=== PATIENT | female | born 1990 ===

== ENCOUNTER 2022-11-02 06:44 | Emergency (ER) | payer MEDICAID, SELFPAY ==
[2022-11-02 06:55] VITALS: BP 142/73; PULSE 80; RESP 18; TEMP 36.4; O2SAT 100
[2022-11-02 07:47] LABS: Appearance Urine Cloudy; Color Urine Yellow; Glucose Urine UA Negative (Negative); Leukocyte Esterase Urine Small (1+) (Negative); Nitrite Urine Negative (Negative); PH 5.5 (5.0-9.0); Specific Gravity - Urine 1.025 (1.005-1.025); UMIC TRIGGER UACC YES; Urine Blood Trace (Negative); Urine Ketones Trace mg/dL (Negative); Urine Protein Trace mg/dL (Neg-Trace)
[2022-11-02 07:48] LABS: UPreg QC Valid YES; Urine Pregnancy NEGATIVE (NEGATIVE)
[2022-11-02 07:53] LABS: Bacteria Urine 1+ (None Seen); Hyaline Casts Urine 0-2 /LPF (0-2); UACC Culture Trigger YES; WBC Urine 21-50 /HPF (0-5)
[2022-11-02 07:58] LABS: Basophils Absolute Auto 0.1 X10*3/uL (0.0-0.2); Basophils Percent Auto 0.6 % (0-2); Eosinophils Absolute Auto 0.1 X10*3/uL (0.0-0.4); Eosinophils Percent Auto 1.5 % (0-4); Hematocrit 40.9 % (37.0-47.0); Hemoglobin 13.5 g/dl (12.0-16.0); Imm Gran Abs Auto 0.04 X10*3/uL (0.00-0.03); Imm Gran Pct Auto 0.4 % (0.0-0.4); Lymphocytes Absolute Auto 1.8 X10*3/uL (1.2-4.9); MANUAL DIFF FLAG NO; Mean Corpuscular Hemoglobin 29.7 pg (27.0-33.0); Mean Corpuscular Volume 90.1 fL (80.0-98.0); Mean Platelet Volume 9.8 fL (9.4-12.3); Monocytes Absolute Auto 0.5 X10*3/uL (0.1-1.2); Monocytes Percent Auto 4.9 % (2-11); Neutrophils Absolute Auto 7.1 x10*3/uL (2.0-8.3); Neutrophils Percent Auto 73.6 % (45-73); Platelet Count 358 X10*3/uL (160-400); Red Blood Count 4.54 X10*6/uL (4.20-5.50); Red Cell Distribution Width 12.7 % (11.0-16.0); White Blood Count 9.6 X10*3/uL (4.8-10.8)
--- NOTE | 2022-11-02 09:08 | ED.GENADULT ---
HPI - General Adult General Chief complaint: General Medical Stated complaint: Dizziness, Nausea, Multiple complaints Time Seen by Provider: 11/02/22 09:08 Source: patient and family Mode of arrival: ambulatory Limitations: no limitations History of Present Illness HPI narrative: Patient is a 32-year-old female with history of BPPV presenting to emergency department with one week of intermittent dizziness, fatigue with exertion, and nausea. She reports history of vertigo several years prior, had an MRI and it was determined to be BPPV. She denies abdominal pain, vomiting, diarrhea, or constipation. Denies back or flank pain. Denies fever/chills. Denies chest pain or dyspnea. Reports LMP was 09/21, negative home test. Denies blurred vision, double vision or other vision changes. Denies headaches. Denies syncope or pre-syncope. Denies any decreased hearing. MD complaint: dizziness Onset (ago): week(s) Radiation: non-radiation Treatments prior to arrival: none Related Data Previous Rx's Medication Instructions Recorded nitrofurantoin 100 mg PO BID #10 caps 11/02/22 monohydrate/macrocrystals 100 mg capsule (Macrobid) Allergies Allergy/AdvReac Type Severity Reaction Status Date / Time No Known Allergies Allergy Verified 11/02/22 06:55 Review of Systems Review of Systems: As per HPI. Yes all other systems are reviewed and are negative Constitutional: Constitutional: Reports as per HPI [facility] Social History Social History Advance Directives: No Advance Directives Information Provided: Yes Physical Exam ED Vital Signs: Vital Signs - 24 hr 11/02/22 06:55 11/02/22 09:47 Temperature 97.5 F 98.9 F Pulse Rate 80 79 Respiratory Rate 18 16 Blood Pressure 142/73 H 123/62 Pulse Oximetry 100 100 Oxygen Delivery Method Room Air BMI result Body Mass Index 30.0 Vital signs have been reviewed and appear to be correct. Blood pressure mildly elevated. Heart rate normal. Respiratory rate normal. Temperature normal. Oxygen saturation normal. Const General: cooperative, healthy appearing and no acute distress Orientation/consciousness: oriented to person, oriented to place, oriented to time and patient oriented x3 Limitations: no limitations HENMT Head: Yes normocephalic and Yes atraumatic Ears: external ears normal General nose exam: Normal external nose present Face and sinus: Yes face symmetric Mouth: oropharynx normal and moist mucous membranes Throat: Yes uvula midline Eyes Pupils: Equal, round and reactive pupils present Neck Neck: Yes normal visual inspection, Yes no meningeal signs and Yes supple Resp Effort & Inspection: normal respiratory effort and able to speak in complete sentences Auscultation: clear to auscultation bilaterally Cardio Rate: regular rate Rhythm: regular rhythm Heart sounds: S1 normal heart sound present and S2 normal heart sound present GI Palpation (GI): Soft to palpation and nontender Auscultation: normoactive bowel sounds General: Yes no CVA tenderness Back/Spine/Pelvis Back: no CVA tenderness Skin General skin exam: elasticity normal and turgor normal Neuro General: oriented to person, oriented to place, oriented to time, patient oriented x3, gait normal, tone normal, moves all extremities, Normal light touch and pain sensation, no meningeal signs, no focal motor deficits, CN's II-XI intact bilaterally and [place] Hallpike (positive on left) Cranial nerves: Yes Equal, round and reactive pupils present Cognition (Neuro): normal cognition Motor exam (neuro): 5/5 motor strength present throughout, Pronator motor function not present, no tremor noted, Normal motor muscle tone present throughout and Motor abnormalities not present Sensory Exam: Normal double simultaneous stimulation for sensation Extrem General: Yes full ROM, Yes no pedal edema and Yes no calf tenderness Psych Mental Status: mental status grossly normal Affect: normal affect Thought process: Normal thought process present Medical Decision Making Medical Decision Making [facility] Narrative: Patient is a 32-year-old female with history of BPPV presenting to emergency department with one week of intermittent dizziness, fatigue with exertion, and nausea. On exam patient is awake, A+Ox3, VS WNL, normal neurological exam without focal deficits, positive Har[place]-Hallpike on left and reported history of BPPV, leukocytes and WBCs on UA. Likely UTI with BPPV, also assessing for electrolyte abnormalities. Beta HCG negative. Unlikely ICH/posterior stroke, MS, acoustic neuroma, carotid artery dissection. 09:59 LFTs, magnesium, and other electrolytes WNL, no leukocytosis. Prescribed Macrobid for UTI. Performed Tatiana maneuver and provided patient with instructions on how to perform at home for left sided symptoms. Instructed patient to follow up with PCP this week. Return precautions discussed at bedside. Differential Diagnosis Differential Diagnoses: The differential diagnosis associated with the presentation includes As above. Lab Data [facility] Lab Attestation statement: I reviewed the patient's lab results. 11/02/22 07:40 11/02/22 07:40 Labs: Lab Results 11/02/22 11/02/22 11/02/22 Range/Units 07:40 07:40 07:40 WBC 9.6 (4.8-10.8) X10*3/uL RBC 4.54 (4.20-5.50) X10*6/uL Hgb 13.5 (12.0-16.0) g/dl Hct 40.9 (37.0-47.0) % MCV 90.1 (80.0-98.0) fL MCH 29.7 (27.0-33.0) pg MCHC 33.0 (31.0-35.0) g/dl RDW 12.7 (11.0-16.0) % Plt Count 358 (160-400) X10*3/uL MPV 9.8 (9.4-12.3) fL Immature Gran % (Auto) 0.4 (0.0-0.4) % Neut % (Auto) 73.6 H (45-73) % Lymph % (Auto) 19.0 L (20-40) % [place] % (Auto) 4.9 (2-11) % Eos % (Auto) 1.5 (0-4) % Baso % (Auto) 0.6 (0-2) % Lymph # (Auto) 1.8 (1.2-4.9) X10*3/uL [place] # (Auto) 0.5 (0.1-1.2) X10*3/uL Eos # (Auto) 0.1 (0.0-0.4) X10*3/uL Baso # (Auto) 0.1 (0.0-0.2) X10*3/uL Abs Immat Gran (auto) 0.04 H (0.00-0.03) X10*3/uL Absolute Neuts (auto) 7.1 (2.0-8.3) x10*3/uL Absolute Nucleated RBC 0.000 (0.0-0.012) X10*3/uL Nucleated RBC % (auto) 0.0 (0.0-0.2) /100WBC Sodium 138 (135-145) mmol/L Potassium 4.5 (3.3-5.1) mmol/L Chloride 110 H (96-108) mmol/L Carbon Dioxide 20 L (22-29) mmol/L Anion Gap 13 (12-20) BUN 12 (9-16) mg/dL Creatinine 0.85 (0.5-1.4) mg/dL Estim Creat Clear Calc 85.3 Estimated GFR > 60 Random Glucose 87 (60-115) mg/dL Calcium 8.9 (8.4-10.2) mg/dL Magnesium 2.2 (1.6-2.6) mg/dL Total Bilirubin 0.4 (0.0-1.0) mg/dL Direct Bilirubin 0.1 (0.0-0.5) mg/dL AST 21 (5-31) U/L ALT 24 (0-31) U/L Alkaline Phosphatase 76 (39-117) U/L Total Protein 7.1 (6.5-8.0) g/dL Albumin 3.8 (3.5-5.0) g/dL Lipase 23 (8-78) U/L Beta HCG, Quant < 2 mIU/mL Urine Color Urine Appearance Urine pH (5.0-9.0) Ur Specific [place] (1.005-1.025) Urine Protein (Neg-Trace) mg/dL Urine Glucose (UA) (Negative) mg/dL Urine Ketones (Negative) mg/dL Urine Blood (Negative) Urine Nitrite (Negative) Ur Leukocyte Esterase (Negative) Urine RBC (0-2) /HPF Urine WBC (0-5) /HPF Ur Squamous Epith Cells (0-2) /HPF Urine Bacteria (None Seen) Hyaline Casts (0-2) /LPF Urine Test NEGATIVE (NEGATIVE) 11/02/22 Range/Units 07:40 WBC (4.8-10.8) X10*3/uL RBC (4.20-5.50) X10*6/uL Hgb (12.0-16.0) g/dl Hct (37.0-47.0) % MCV (80.0-98.0) fL MCH (27.0-33.0) pg MCHC (31.0-35.0) g/dl RDW (11.0-16.0) % Plt Count (160-400) X10*3/uL MPV (9.4-12.3) fL Immature Gran % (Auto) (0.0-0.4) % Neut % (Auto) (45-73) % Lymph % (Auto) (20-40) % [place] % (Auto) (2-11) % Eos % (Auto) (0-4) % Baso % (Auto) (0-2) % Lymph # (Auto) (1.2-4.9) X10*3/uL [place] # (Auto) (0.1-1.2) X10*3/uL Eos # (Auto) (0.0-0.4) X10*3/uL Baso # (Auto) (0.0-0.2) X10*3/uL Abs Immat Gran (auto) (0.00-0.03) X10*3/uL Absolute Neuts (auto) (2.0-8.3) x10*3/uL Absolute Nucleated RBC (0.0-0.012) X10*3/uL Nucleated RBC % (auto) (0.0-0.2) /100WBC Sodium (135-145) mmol/L Potassium (3.3-5.1) mmol/L Chloride (96-108) mmol/L Carbon Dioxide (22-29) mmol/L Anion Gap (12-20) BUN (9-16) mg/dL Creatinine (0.5-1.4) mg/dL Estim Creat Clear Calc Estimated GFR Random Glucose (60-115) mg/dL Calcium (8.4-10.2) mg/dL Magnesium (1.6-2.6) mg/dL Total Bilirubin (0.0-1.0) mg/dL Direct Bilirubin (0.0-0.5) mg/dL AST (5-31) U/L ALT (0-31) U/L Alkaline Phosphatase (39-117) U/L Total Protein (6.5-8.0) g/dL Albumin (3.5-5.0) g/dL Lipase (8-78) U/L Beta HCG, Quant mIU/mL Urine Color Yellow Urine Appearance Cloudy Urine pH 5.5 (5.0-9.0) Ur Specific [place] 1.025 (1.005-1.025) Urine Protein Trace (Neg-Trace) mg/dL Urine Glucose (UA) Negative (Negative) mg/dL Urine Ketones Trace (Negative) mg/dL Urine Blood Trace H (Negative) Urine Nitrite Negative (Negative) Ur Leukocyte Esterase Small (1+) H (Negative) Urine RBC 3-5 H (0-2) /HPF Urine WBC 21-50 H (0-5) /HPF Ur Squamous Epith Cells 6-10 (0-2) /HPF Urine Bacteria 1+ (None Seen) Hyaline Casts 0-2 (0-2) /LPF Urine Test (NEGATIVE) Independent Historian Clinical information obtained from an independent historian. History obtained from or confirmed by: Spouse External Record Review External record reviewed: Inpatient record, Office record and Outpatient record Prescription Management I considered prescription management with: Antibiotic Discharge Plan Discharge Clinical Impression: Urinary tract infection Benign paroxysmal positional vertigo Qualifiers: Laterality: left Qualified Code(s): H81.12 - Benign paroxysmal vertigo, left ear Patient Disposition: Home, Self-Care Instructions: Urinary Tract Infection in Women (DC), Benign Paroxysmal Positional Vertigo (ED) Additional Instructions: You can continue to perform the Tatiana maneuvers at home to decreased your dizziness. You are being prescribed Macrobid which is an antibiotic for your urinary tract infection. Please complete the full course of antibiotics as prescribed. Follow-up with your primary care provider this week. Return to the emergency department if you experience worsening dizziness, fainting, chest pain, shortness of breath, fever 100.4? F or greater come back or flank pain, abdominal pain or any other concerning symptoms. Prescriptions: New nitrofurantoin monohyd/m-cryst [Macrobid] 100 mg capsule 100 mg PO BID Qty: 10 0RF Rx Instructions: must administer with a meal/food
[2022-11-02 09:12] LABS: Anion Gap 13 (12-20); Blood Urea Nitrogen 12 mg/dL (9-16); Calcium 8.9 mg/dL (8.4-10.2); Carbon Dioxide 20 mmol/L (22-29); Chloride 110 mmol/L (96-108); Creatinine Clr Calc Pharmacy 85.3; Estimated Glomerular Filt Rate > 60; Glucose Random 87 mg/dL (60-115); Potassium 4.5 mmol/L (3.3-5.1); Sodium 138 mmol/L (135-145)
[2022-11-02 09:18] LABS: HCG Quantitative < 2 mIU/mL
[2022-11-02 09:33] LABS: Alanine Aminotransferase 24 U/L (0-31); Albumin Level 3.8 g/dL (3.5-5.0); Alkaline Phosphatase 76 U/L (39-117); Aspartate Amino Transferase 21 U/L (5-31); Bilirubin Direct 0.1 mg/dL (0.0-0.5); Bilirubin Total 0.4 mg/dL (0.0-1.0); Lipase 23 U/L (8-78); Magnesium 2.2 mg/dL (1.6-2.6); Total Protein 7.1 g/dL (6.5-8.0)
[2022-11-02 09:47] VITALS: BP 123/62; PULSE 79; RESP 16; TEMP 37.2; O2SAT 100
== END 2022-11-02 11:07 | disposition home or self-care (01) ==
PROVIDERS: Registered Nurse Emergency; Emergency Provider Internal Medicine
DX: N39.0 Urinary tract infection, site not specified (principal); H81.12 Benign paroxysmal vertigo, left ear
CPT/HCPCS: 36415; 80048; 80076; 81001; 81025; 83690; 83735; 84702; 85025; 87086; 99283; 99284

== ENCOUNTER 2022-11-04 14:57 | Outpatient (REF) | payer MEDICAID, SELFPAY ==
[2022-11-04 16:01] LABS: Troponin-I High Sensitivity < 2.7 ng/L (<3.5-17.0)
[2022-11-04 16:13] LABS: TSH reflex Free T4 2.23 uIU/mL (0.32-4.0); Vitamin D 25-OH Total 45.2 ng/mL (>30)
== END 2022-11-04 14:58 | disposition home or self-care (01) ==
LOC: HO.LAB 14:57
PROVIDERS: Visit Provider Emergency Medicine
DX: R07.9 Chest pain, unspecified (principal); R00.2 Palpitations; H81.10 Benign paroxysmal vertigo, unspecified ear
CPT/HCPCS: 36415; 82306; 84443; 84484

== ENCOUNTER → 2023-01-19 14:02 | Outpatient (REF) | payer MEDICAID, SELFPAY ==
--- NOTE | 2023-01-19 14:05 | CA_ITS ---
Transthoracic Echocardiogram Patient (Last, First, Middle): Taniya Mejia, Gender: Female Date of : 1990 Age: 32 Procedure Date: 01/19/2023 Procedure Type: Transthoracic Echocardiogram Location: OP Height: 154.94 cm Weight: 72.58 kg BSA: 1.72 m2 Heart Rate: 67 bpm BP: 120 / 80 mmHg [employer]visor [employer]: EV[employer] Referring MD: Marcos Valencia MD Symptoms: R00.2 PALPITATIONS RO7.9 CHEST PAIN Study Quality: Fair ECG Rhythm: Sinus Conclusions: - The left ventricular systolic function is normal. The calculated ejection fraction is 63% by biplane method. - No obvious valvular pathology seen on this study. Findings Left Ventricle Normal left ventricular cavity size. There is normal left ventricular wall thickness. The left ventricular systolic function is normal. The calculated ejection fraction is 63% by biplane method. There is no evidence of regional wall motion abnormalities. Diastolic function is normal for age. LV peak GLS -18.8%. Right Ventricle Normal right ventricular cavity size and systolic function. Atria Both atria are normal in size. Aortic Valve There is a normal trileaflet aortic valve. There is no aortic valve stenosis. There is no aortic valve regurgitation. Mitral Valve The mitral valve appears normal. There is no mitral valve regurgitation. There is no mitral valve stenosis. Pulmonic Valve The pulmonic valve is likely normal. Tricuspid Valve Normal tricuspid valve structure. There is trace tricuspid valve regurgitation. There is no evidence of pulmonary hypertension. Great Vessels The asc aorta is normal in size. Venous The inferior vena cava is normal in size and collapses greater than 50% with inspiration. Pericardium/Pleural There is no evidence of pericardial effusion. Prior Study Comparison No prior study available for comparison. Recommendations, Care & Conclusions No obvious valvular pathology seen on this study. Measurements 2D Linear Measurements IVSd: 0.77 0.6-0.9/0.6-1.0 cm LVIDd: 4.29 3.9-5.3/4.2-5.9 cm LVIDd Index: 2.49 2.4-3.2/2.2-3.1 cm/m2 LVIDs: 2.76 2.0-3.6 cm LVPWd: 0.84 0.7-1.1 cm Ao Root: 2.50 2.1-3.5 cm LA Diam: 3.00 2.7-3.8/3.0-4.0 cm LAIDs Index: 1.74 1.5-2.3 cm/m2 LV Mass: 131.37 67-162/88-224 g LV Mass Index: 76.38 43-95/49-115 g/m2 LVOT Diam: 1.80 3.0+(-)1.3 cm 2D Systolic Function EF 4C: 66.20 >55% EF 2C: 58.30 >55% EF BiP: 63.10 >55% Mitral Valve MV Pk E: 1.02 MV PK A: 0.68 MV Decel Time: 212.00 E/A: 1.50 E'Lateral: 14.90 E'Medial: 9.90 E/E' Med: 10.30 E/E' Lat: 6.80 PHT: 62.00 MVA PHT: 3.55 Decel Bullitt: 4.83 Aortic Valve AoV Pk Dima: 1.37 AoV Mn Dima: 0.96 AoV VTI: 0.30 AoV Pk Grad: 8.00 Aov Mn Grad: 4.00 DARI Cont.VTI: 1.97 LVOT LVOT Pk Dima: 1.01 LVOT Mn Dima: 0.74 LVOT VTI: 0.23 LVOT Pk Grad: 4.00 LVOT Mn Grad: 2.00 LVOT Diam: 1.80 LVOT Area: 2.54 Diastolic Function MV Pk E: 1.02 MV Pk A: 0.68 E/A: 1.50 E'Medial: 9.90 E/E' Med: 10.30 E' Laterial: 14.90 E/E' Lat: 6.80 Right Ventricle TAPSE (mm): 22.20 TVS' Dima: 12.30 Tricuspid Valve TR Pk Dima: 2.13 TR Pk Grad: 18.00 Great Vessels Aorta Ao Root-2D: 2.50 2.0-3.7 cm Sinus of Valsalva: 2.50 2.0-3.5 cm Ao Asc: 2.40 2.1-3.4 cm Pulmonary Valve PV Pk Dima: 1.51 Peak PV Grad: 9.00 Updated in Other Vendor System with Status of Final Mukund Mccarthy MD electronically signed on 01/21/2023 9:50:26 AM with status of Final
== END ==
LOC: HO.CARD 14:02
PROVIDERS: Visit Provider Internal Medicine Cardiovascular Disease
DX: R07.9 Chest pain, unspecified (principal); R00.2 Palpitations
CPT/HCPCS: 93306; 93356

== ENCOUNTER → 2023-01-19 14:05 | Outpatient (BNV) | payer MEDICAID, SELFPAY | PROVIDERS: Visit Provider Internal Medicine | DX: R00.2 Palpitations (principal); R07.9 Chest pain, unspecified | CPT/HCPCS: 93306 ==

== ENCOUNTER → 2023-02-14 11:00 | Outpatient (REF) | payer MEDICAID, SELFPAY ==
--- NOTE | 2023-02-14 11:02 | CA_ITS ---
Acquisition Time: 2023-02-14 11:10:03 Total Exercise Time: 00:07:12 Test Indications: Dyspnea Medications: NONE Protocol: MATT Max HR: 160 BPM 85% of Pred: 187 BPM Max BP: 134/070 mmHG Max Work Load: 8.8 METS Exercise stress test exercise 7 min 12 sec of Matt protocol briefly achieivng 83%, with mild SOB, 3/10 right sided chest pressure, without arrhythmias, with normotensive response to exercise, without EKG changes. Echo images obtained at rest and immediately post peak exercise. Definity contrast used. Test reviewed with Dr. Sheth. Referred By: Marcos Valencia Overread By: AV CHAHAL
== END ==
LOC: HO.CARD 11:00
PROVIDERS: Visit Provider Internal Medicine Cardiovascular Disease
DX: R07.9 Chest pain, unspecified (principal); R00.2 Palpitations
CPT/HCPCS: 93350; Q9957

== ENCOUNTER → 2023-02-14 11:02 | Outpatient (BNV) | payer MEDICAID, SELFPAY | PROVIDERS: Visit Provider Internal Medicine | DX: R07.89 Other chest pain (principal); R06.02 Shortness of breath | CPT/HCPCS: 93016; 93018; 93350; 93352 ==

== ENCOUNTER 2023-04-14 07:51 | Emergency (ER) | payer OTHER, MEDICAID, SELFPAY ==
--- NOTE | ~2023-04-14 | CT_ITS ---
EXAMINATION: CT HEAD WITHOUT CONTRAST CT CERVICAL SPINE WITHOUT CONTRAST CLINICAL INFORMATION: 32-year-old female with head and neck pain COMPARISON: None TECHNIQUE: Contiguous axial imaging was performed from the skull base to vertex without intravenous administration of contrast. Contiguous axial imaging was performed from the upper chest through the skull base without intravenous administration of contrast. Coronal and sagittal reformats were obtained at the acquisition workstation. This CT examination was performed using dose optimization techniques as appropriate, variously including the following: *Automated exposure control. *Adjustment of mA and/or kV according to patient size (this includes techniques or standardized protocols for targeted exams where dose is matched to indication/reason for exam; i.e. extremities or head). *Use of iterative reconstruction technique. DLP: 1419 mGy-cm FINDINGS: Head: There is no evidence of acute intracranial hemorrhage or edematous territorial infarction. Kelley-white matter differentiation is preserved. There is no abnormal attenuation within the brain parenchyma. The ventricles are normal in morphology and size. No evidence for obstructive hydrocephalus. No abnormal mass effect or midline shift. No extra-axial fluid collections. No acute soft tissue or osseous abnormalities. The mastoid air cells and visualized paranasal sinuses are clear. Cervical Spine: The atlantooccipital and atlantoaxial articulations remain well aligned. Straightening of the normal cervical lordosis. Otherwise, there is anatomic alignment of the vertebral bodies and posterior elements. No evidence of acute fracture or subluxation. The vertebral body heights and disc spaces are maintained. There is no prevertebral soft tissue swelling. The thyroid gland and remaining cervical soft tissues are within normal limits. The lung apices demonstrate no abnormalities. CT/CT cervical spine wo IV con IMPRESSION: No acute intracranial pathology.
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
[2023-04-14 08:08] VITALS: BP 115/61; PULSE 87; RESP 16; TEMP 36.6; O2SAT 99; BMI 30.2
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
--- NOTE | 2023-04-14 09:56 | PC.NURSE ---
20gIV placed in right AC w/o difficultly;ty - labs drawn and sent to lab. pt awaiting CT scan.
[2023-04-14 10:10] LABS: MANUAL DIFF FLAG NO
[2023-04-14 10:12] LABS: Basophils Absolute Auto 0.1 X10*3/uL (0.0-0.2); Basophils Percent Auto 0.6 % (0-2); Eosinophils Absolute Auto 0.2 X10*3/uL (0.0-0.4); Eosinophils Percent Auto 1.5 % (0-4); Hematocrit 41.5 % (37.0-47.0); Hemoglobin 14.1 g/dl (12.0-16.0); Imm Gran Abs Auto 0.06 X10*3/uL (0.00-0.03); Imm Gran Pct Auto 0.5 % (0.0-0.4); Lymphocytes Absolute Auto 2.3 X10*3/uL (1.2-4.9); Lymphocytes Percent Auto 20.2 % (20-40); Mean Corpuscular Hemoglobin 29.9 pg (27.0-33.0); Mean Corpuscular Volume 87.9 fL (80.0-98.0); Mean Platelet Volume 9.7 fL (9.4-12.3); Monocytes Absolute Auto 0.6 X10*3/uL (0.1-1.2); Monocytes Percent Auto 4.8 % (2-11); Neutrophils Absolute Auto 8.4 x10*3/uL (2.0-8.3); Neutrophils Percent Auto 72.4 % (45-73); Platelet Count 340 X10*3/uL (160-400); Red Blood Count 4.72 X10*6/uL (4.20-5.50); Red Cell Distribution Width 12.1 % (11.0-16.0); White Blood Count 11.6 X10*3/uL (4.8-10.8)
[2023-04-14 10:17] LABS: INTERNATIONAL NORM RATIO 0.9 (0.9-1.1); Prothrombin Time 11.1 SEC (11.1-13.3)
[2023-04-14 10:57] LABS: HCG Quantitative < 2 mIU/mL
[2023-04-14 11:34] LABS: Alanine Aminotransferase 25 U/L (0-31); Albumin Level 3.8 g/dL (3.5-5.0); Alkaline Phosphatase 136 U/L (39-117); Anion Gap 11 (12-20); Aspartate Amino Transferase 24 U/L (5-31); Bilirubin Direct 0.2 mg/dL (0.0-0.5); Bilirubin Total 0.4 mg/dL (0.0-1.0); Blood Urea Nitrogen 12 mg/dL (9-16); Carbon Dioxide 19 mmol/L (22-29); Chloride 113 mmol/L (96-108); Creatinine Clr Calc Pharmacy 110.4; Estimated Glomerular Filt Rate > 60; Glucose Random 75 mg/dL (60-115); Lipase 17 U/L (8-78); Potassium 3.6 mmol/L (3.3-5.1); Sodium 139 mmol/L (135-145); Total Protein 7.1 g/dL (6.5-8.0)
--- NOTE | 2023-04-14 11:50 | PC.NURSE ---
pt to CT at this time.
[2023-04-14] MEDS: iohexoL 350 MG/ML 100 ML INFUS..BTL 85 ML IV (12:04)
[2023-04-14 12:18] VITALS: BP 112/60; PULSE 79; RESP 16; TEMP 36.7; O2SAT 99
[2023-04-14 15:58] LABS: Appearance Urine Clear; Color Urine Yellow; Glucose Urine UA Negative (Negative); Leukocyte Esterase Urine Negative (Negative); Nitrite Urine Negative (Negative); Specific Gravity - Urine >= 1.030 (1.005-1.025); UMIC TRIGGER UACC YES; Urine Blood Trace (Negative); Urine Ketones Trace mg/dL (Negative); Urine Protein Negative (Neg-Trace)
[2023-04-14 16:16] LABS: Bacteria Urine 4+ (None Seen); Hyaline Casts Urine 0-2 /LPF (0-2); UACC Culture Trigger YES
== END 2023-04-14 16:00 | disposition home or self-care (01) ==
PROVIDERS: Physician Assistant; Emergency Provider Emergency Medicine
DX: S13.4XXA Sprain of ligaments of cervical spine, initial encounter (principal); I88.0 Nonspecific mesenteric lymphadenitis; R10.9 Unspecified abdominal pain; M54.2 Cervicalgia; R10.31 Right lower quadrant pain; R51.9 Headache, unspecified; V43.62XA Car passenger injured in collision with other type car in traffic accident, initial encounter; Y93.9 Activity, unspecified; Y92.410 Unspecified street and highway as the place of occurrence of the external cause; Y99.9 Unspecified external cause status; Z79.899 Other long term (current) drug therapy
CPT/HCPCS: 36415; 70450; 72125; 74177; 80048; 80076; 81001; 83690; 84702; 85025; 85610; 87086; 99284; Q9967

== ENCOUNTER 2023-06-07 07:53 | Emergency (ER) | payer MEDICAID, SELFPAY ==
[2023-06-07 08:08] VITALS: BP 126/70; PULSE 100; RESP 18; TEMP 36.6; O2SAT 100; BMI 30.4
[2023-06-07 09:14] LABS: Influenza A PCR NEGATIVE (Negative); Influenza B PCR NEGATIVE (Negative); Resp Syncy Virus RNA Qual PCR NEGATIVE (Negative); SARS COV2 PCR INHOUSE POSITIVE (Negative)
--- NOTE | 2023-06-07 09:40 | ED.GENADULT ---
HPI - General Adult General Chief complaint: General Medical Stated complaint: Fatigue, nausea, congestion Time Seen by Provider: 06/07/23 09:23 Source: patient and family () Mode of arrival: ambulatory Limitations: no limitations History of Present Illness HPI narrative: 33 year old female with no significant pmhx presents to the ED today for evaluation of fatigue, nausea and nasal congestion x5 days. Has not been taking anything at home for this. Denies sick contacts. Reports LMP on 05/05 (1 mo ago). Endorses chance of . Denies fever, chills, vomiting, abdominal pain, CP, SOB, abnormal bleeding, vaginal discharge, dysuria, hematuria, flank pain. Related Data Previous Rx's Medication Instructions Recorded nitrofurantoin 100 mg PO BID #10 caps 11/02/22 monohydrate/macrocrystals 100 mg capsule (Macrobid) acetaminophen 500 mg tablet 500 mg PO Q6H PRN fever or pain 04/14/23 (Tylenol Extra Strength) #14 tabs cyclobenzaprine 5 mg tablet 5 mg PO Q8H PRN pain (scale score 04/14/23 7-10) 5 days #14 tabs lidocaine 5 % topical patch 1 patch topical DAILY PRN pain #30 04/14/23 (Lidoderm) ea naproxen 500 mg tablet 500 mg PO BID PRN pain 10 days #20 04/14/23 tabs pyridoxine (vitamin B6) 25 mg 25 mg PO DAILY #20 tabs 06/07/23 tablet Allergies Allergy/AdvReac Type Severity Reaction Status Date / Time No Known Allergies Allergy Verified 11/02/22 06:55 Review of Systems Review of Systems: Constitutional: No fever, chills, fatigue, night sweats, weight changes ENT/Mouth: No ear pain, hearing loss, +nasal congestion, No sinus pain, rhinorrhea Eyes: No eye pain, swelling, redness, vision changes, discharge Cardio: No chest pain, palpitations, BELLO, orthopnea, peripheral edema Pulm: No SOB, cough, sputum, wheezing, dyspnea, hemoptysis GI: +nausea, No vomiting, hematemesis, abdominal pain, diarrhea, constipation, hematochezia, melena : No irregular bleeding, dysuria, frequency, urgency, hesitancy, hematuria, flank pain MSK: No back pain, neck pain, joint pain, myalgias Skin: No lesions, rashes Neuro: No weakness, numbness, paresthesias, LOC, dizziness, headache All other systems reviewed and are negative. [facility] Past Medical History Attestation statement: The following information was validated with the patient. Source: old records reviewed and nursing notes reviewed Onset Date is defined in the Problem List Problems that require an onset date and time if occurred within 24 hrs of arrival to the ED Aortic Dissection and Rupture; Neurologic impairment; Cardiopulmonary Arrest; Endotracheal Intubation; Insertion or Replacement of Mechanical Circulatory Assist Device Social History Social History Smoked in Last 30 Days: No Use of substances other than those prescribed or required for medical reasons: No Advance Directives: No Advance Directives Information Provided: No Patient : Yes Physical Exam ED Vital Signs: Vital Signs - 24 hr 06/07/23 08:08 Temperature 98 F Pulse Rate 100 Respiratory Rate 18 Blood Pressure 126/70 Pulse Oximetry 100 Oxygen Delivery Method Room Air BMI result Body Mass Index 30.4 Vital signs stable, afebrile Const General: cooperative, healthy appearing, comfortable, no acute distress, alert and awake Orientation/consciousness: patient oriented x3 Limitations: no limitations HENMT Other: + posterior oropharynx without erythema or edema, uvula is midline, no tonsilar exudates or peritonsillar masses, controlling secretions and speaking in complete sentences. Head: Yes normal to inspection, Yes normocephalic and Yes atraumatic Ears: hearing grossly normal bilaterally, external ears normal, TM's normal bilaterally, EAC's normal, mastoids normal and no periauricular adenopathy General nose exam: Normal external nose present and No nasal discharge present Face and sinus: Yes normal facial exam and Yes sinuses nontender Eyes General: appearance normal, both eyes and all related structures Pupils: Equal, round and reactive pupils present Neck Other: + no cervical, submandibular or submental LAD. Resp Effort & Inspection: normal respiratory effort and able to speak in complete sentences Auscultation: clear to auscultation bilaterally Cardio Rate: regular rate Rhythm: regular rhythm GI Inspection: Yes normal to inspection Palpation (GI): Soft to palpation, nontender and no guarding Skin General skin exam: no rashes or lesions noted Neuro General: patient oriented x3, gait normal and moves all extremities Cranial nerves: Yes Equal, round and reactive pupils present Extrem General: Yes normal to inspection Course Course Course Narrative: 1230-- Viral serology returned positive for COVID 19. Urine is positive for . Given new diagnosis of pregnany and covid positive results, I have spoken with information technology director Dr. Deepika ontiveros regarding paxlovid. The recommendation is administration of paxlovid within the first 5 days of symptoms for any female. Informed patient of work up results. Given this if day 5 of symptoms, I have had a lengthy discussion with the patient regarding the risks and benefits of paxlovid administration. She is declining treatment with paxlovid at this time. Will provide referral for OBGYN to establish care. Patient has remained stable throughout ED visit today. Discussed strict return precautions. All questions answered at this time. Patient is agreeable with disposition and stable for discharge. Reevaluation(s) Reevaluation #1: I have discussed with the PA the plan and findings Time: 12:00 Medical Decision Making Medical Decision Making [facility] Narrative: 33 year old female with no significant pmhx presents to the ED today for evaluation of fatigue, nausea and nasal congestion x5 days. Vital signs are stable. Afebrile. Patient is nontoxic appearing and in NAD. No LAD. Lungs CTA b/l. RRR. Abdomen soft, NT/ND, no rebound or guarding. No CVAT b/l. Clinical concern for viral syndrome vs IUP. Less likely strep throat, mono, pneumonia, asthma, ELECTRO MECHANICAL TECHNOLOGIST, sinusitis, anemia. Unlikely appendicits, PID, pyelo, nephrolithiasis. Plan for serology and urine preg. Differential Diagnosis Differential Diagnoses: The differential diagnosis associated with the presentation includes as above. Admission/Observation Not indicated Consult Healthcare Provider Management of the patient was discussed with: Vocational Coordinator (Dr. Deepika ONTIVEROS) Lab Data [facility] Lab Attestation statement: I reviewed the patient's lab results. as above Labs: Lab Results 06/07/23 06/07/23 Range/Units 08:07 10:21 Urine Test POSITIVE H (NEGATIVE) Influenza Type A (PCR) NEGATIVE (Negative) Influenza Type B (PCR) NEGATIVE (Negative) RSV RNA Qual (PCR) NEGATIVE (Negative) SARS-CoV-2 RNA (RT-PCR) POSITIVE A (Negative) Independent Historian Clinical information obtained from an independent historian. History obtained from or confirmed by: Spouse () External Record Review External record reviewed: Inpatient record Prescription Management I considered prescription management with: Pain Medication and Antiviral Social Determinants Patient?s care significantly limited by Social Determinants of Health including: Other Social Determinant of Health Critical Care Time Critical Care Time Critical Care Time: No Discharge Plan Discharge Clinical Impression: COVID, Patient Disposition: Home, Self-Care Instructions: (ED), COVID-19 (Coronavirus Disease 2019) (ED) Additional Instructions: Today you tested positive for COVID-19.? Your urine was positive for . You may take tylenol as needed for body aches or fever. Do not take ibuprofen as this is not safe in . Quarantine for 5 days and ensure you wear a mask. After 5 days you should wear a mask for 5 days after that.? Practice social distancing and good hand hygiene. Drink plenty of fluids. Vitamin B6 has been sent to your pharmacy to help with nausea. It is also recommended to take over the counter folic acid supplements this early in . Follow-up with your primary care provider this week. You have also been provided with a referral to an OBGYN doctor to establish care for . CALL THEM TO MAKE AN APPOINTMENT. THEY WILL NOT CALL YOU. Return to the emergency department with new or worsening symptoms. In case of emergency call 911 You can purchase a pulse oximeter from your local pharmacy or grocery store, and monitor your oxygen saturation if it goes below 94% you should return to the emergency department for further evaluation. Prescriptions: New pyridoxine (vitamin B6) 25 mg tablet 25 mg PO DAILY Qty: 20 0RF No Action nitrofurantoin monohyd/m-cryst [Macrobid] 100 mg capsule 100 mg PO BID Qty: 10 0RF Rx Instructions: must administer with a meal/food acetaminophen [Tylenol Extra Strength] 500 mg tablet 500 mg PO Q6H PRN (Reason: fever or pain) Qty: 14 0RF lidocaine [Lidoderm] 5 % adhesive patch,medicated 1 patch topical DAILY MDD remove after 12 hours PRN (Reason: pain) Qty: 30 0RF Rx Instructions: leave on most painful area for up to 12 hrs naproxen 500 mg tablet 500 mg PO BID PRN (Reason: pain) 10 Days Qty: 20 0RF cyclobenzaprine 5 mg tablet 5 mg PO Q8H PRN (Reason: pain (scale score 7-10)) 5 Days Qty: 14 0RF Referrals: [facility] [Provider Group] [place] [Primary Care Provider] - Nba Poe MD [Physician] - Interventions: ED Discharge Assessment Last Done: 06/07/23 12:42 Discharge Date/Time: 06/07/23 12:42
[2023-06-07 10:46] LABS: UPreg QC Valid YES; Urine Pregnancy POSITIVE (NEGATIVE)
[2023-06-07 12:00] VITALS: BP 120/70; PULSE 70; RESP 16; TEMP 36.6; O2SAT 98
== END 2023-06-07 12:42 | disposition home or self-care (01) ==
PROVIDERS: Emergency Provider Emergency Medicine
DX: O98.511 Other viral diseases complicating pregnancy, first trimester (principal); U07.1 COVID-19; Z3A.01 Less than 8 weeks gestation of pregnancy
CPT/HCPCS: 0241U; 81025; 99283; 99284

== ENCOUNTER 2023-07-06 09:58 | Outpatient (AMB) | payer MEDICAID, SELFPAY ==
[2023-07-06 09:58] VITALS: BP 118/62; BMI 32.1
--- NOTE | 2023-07-06 09:58 | A.OFFVIS_ITS ---
Intake Vital Signs 07/06/23 09:58 Height 5 ft 1 in Weight 170 lb BMI 32.1 BP 118/62 Intake Visit Reasons: Preg Consult Information Interpreted: clinical only Dry Janitor: Dry Janitor Present Allergies No Known Allergies Allergy (Verified 07/06/23 09:58) Medication List - Last Reconciled 07/06/23 by Ashtyn Alcazar CNM PNV,calcium 72-iron,carb-folic 29 mg iron- 1 mg 1 tab PO DAILY pyridoxine (vitamin B6) 25 mg PO DAILY Is last menstrual period known: Yes Last menstrual period: 05/05/23 Do you need a note to return to daycare/school/sports/work: No HPI Preg Consult HPI Details Patient is here for consult. She has lost a questions about early . 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 She started feeling a little nauseous and tired and having food aversions around the time of a missed. That did not come on June 03 and she did a test at home on June 07 and it was positive but she did not believe it so she went to the emergency room for confirmation and also was tested positive for COVID at that time. She says no one else in the family got COVID she feels fine now and she did not really feel that sick then either. She says she was told that there was no place to get at [facility] and also she was offered Paxlovid but the by the time she went to the emergency room it was already day 5 of her symptoms. [facility] Medical History (Updated 07/06/23 @ 10:45 by Ashtyn Alcazar CNM) COVID-19 Social History Alcohol intake: never Patient Tobacco Use Status: Never used Tobacco e-Cigarette/Vaping Use: Never Used Female Reproductive History Menstrual Age of Menarche: 10 Duration of menses: <3 days Date of last menstrual period: 05/05/23 control method: none Total pregnancies: 1 Full term: 0 History of abnormal pap smear: No (per patient.previous pap,2019) Physical Exam Vital Signs: Last Vital Signs BP 118/62 07/06/23 09:58 BMI result Body Mass Index 32.1 Other: Abdomen soft fundus not palpable but did attempt to auscultate heart it is not audible yet Results AMB Test Urine AMB Test Urine Positive Last Edit by Paula Cantu CMA on 07/06/23 10:15 Results Reviewed Results Reviewed: Laboratory Last Values [facility]st Clinic Positive 07/06/23 10:15 Assessment & Plan Assessment & Plan (1) Early stage of : Comment: lmp 05/05/23, pos preg test er 06/07/23 ( w covid dx) Code(s): Z34.90 - Encounter for supervision of normal , unspecified, unspecified trimester Plan ---I reviewed the patient's medical history and risk factors for . I reviewed her menstrual history and regularity, and reviewed the dating of her last menstrual period and other indicators. I reviewed where she is in this , and what to expect in this early stage of the . ---I reviewed the routines of care. I reviewed the options open to her including care here and that delivery does not occur here; it occurs currently at our referring institution.. I also reviewed the options of receiving care and delivery at [facility]. In her case because she is having her 1st baby I discussed the importance of being able to ask all of her questions of the team that there is going to be involved with delivering her baby and I recommend that for first-time mom's they strongly consider starting there care from the start at [facility] and initiating the care in time to get 1st trimester screening done is important as well I gave her a list of all of the practices and recommend that they start calling now ---I reviewed basic good health and ways to achieve a healthy and goals. I reviewed warning signs that would necessitate calling us: for instance, severe pain, bleeding, severe nausea and vomiting, such that she is unable to keep anything down and feeling weak. In the meantime I am also ordering a dating ultrasound because that is something she is curious about and we will have a visit after an it can be a tele visit but I do not want her to delay getting into care at [facility]. She lives in [place] and feels [facility] would be the best and has already decided that [facility] would be which she go. I ordered vitamins for her if she did not have them. I reviewed basic healthy goals with diet and active exercise and activity and avoidance of toxic substances.. I reviewed emotional supports and stressors in her life, and family relationship and supports including partner supports.. She is already taking vitamins we reviewed food safety food cravings coffee in moderation chocolate in moderation food aversions taking care with processed meats and fish Orders: Orders AMB HCG Urine Test Today Z32.01 - Encounter for test, result positive US OB <= 14 weeks fetus Today Z34.90 - Encounter for supervision of normal , unspecified, unspecified trimester Coding Level of Care Code New Pt Level 3 (86028) Diagnoses Early stage of Z34.90
== END 2023-07-06 10:57 | disposition home or self-care (01) ==
LOC: HO.HWSM 09:58
PROVIDERS: Visit Provider Advanced Practice Midwife
DX: Z34.90 Encounter for supervision of normal pregnancy, unspecified, unspecified trimester (principal); Z32.01 Encounter for pregnancy test, result positive
CPT/HCPCS: 99203

== ENCOUNTER → 2023-07-06 09:58 | Outpatient (BNVA) | payer MEDICAID, SELFPAY | PROVIDERS: Visit Provider Advanced Practice Midwife | DX: Z34.00 Encounter for supervision of normal first pregnancy, unspecified trimester (principal); Z3A.00 Weeks of gestation of pregnancy not specified | CPT/HCPCS: 81025; 99212 ==

== ENCOUNTER 2023-07-19 13:00 | Outpatient (REF) | payer MEDICAID, SELFPAY ==
--- NOTE | ~2023-07-19 | US_ITS ---
EXAMINATION: US OBSTETRICAL ULTRASOUND CLINICAL INFORMATION: Encounter for supervision of normal . COMPARISON: None available. LMP: 05/05/2023. Gestational age by maternal dates is 10 weeks and 5 days. Estimated date of delivery by maternal dates is 02/09/2024. TECHNIQUE: Ultrasound of the maternal pelvis is performed using transabdominal transducer. M-mode Doppler is also performed. FINDINGS: There is a single intrauterine gestational sac with visible yolk sac, embryo/fetus, and cardiac activity. There is no significant subchorionic hemorrhage or hematoma. HR: 172 beats per minute. CRL (crown rump length): 4.34 cm (11 weeks and 2 days +/- 4 days). WALE (estimated date of delivery): 02/05/2024 +/- 4 days. MATERNAL ADNEXA: The right maternal ovary measures 5.2 x 4.2 x 4.6 cm. The right ovary contains a 4.3 cm in maximal diameter benign, simple cyst, for which no imaging follow-up is recommended. The left maternal is not visualized. There is no significant maternal adnexal mass. No maternal pelvic ascites. US/US OB <= 14 weeks fetus IMPRESSION: 1. Single intrauterine gestation with ultrasound gestational age of 11 weeks and 2 days +/- 4 days. 2. Estimated date of delivery is 02/05/2024 +/- 4 days. 3. No maternal adnexal mass or pelvic ascites.
== END 2023-07-19 13:01 | disposition home or self-care (01) ==
LOC: HO.US 13:00
PROVIDERS: Visit Provider Advanced Practice Midwife
DX: Z34.91 Encounter for supervision of normal pregnancy, unspecified, first trimester (principal); Z3A.10 10 weeks gestation of pregnancy
CPT/HCPCS: 76801

== ENCOUNTER 2023-08-18 11:08 | Outpatient (AMB) | payer MEDICAID, SELFPAY ==
--- NOTE | 2023-08-18 11:10 | A.OFFVIS_ITS ---
Intake Intake Visit Reasons: TV US follow up/[phone] Alodize Machine Operator Required: Yes Alodize Machine Operator Language: Jamaican Allergies No Known Allergies Allergy (Verified 08/18/23 11:10) Medication List - Last Reconciled 08/18/23 by Ashtyn Alcazar CNM PNV,calcium 72-iron,carb-folic 29 mg iron- 1 mg 1 tab PO DAILY pyridoxine (vitamin B6) 25 mg PO DAILY Post menopausal: No HPI TV US follow up/[phone] HPI Details This is a tele visit to review patient's ultrasound that she had 1 month ago on 07/19/2023 as a dating ultrasound. She had been seen just as a consult visit prior to that the ultrasound gave her an WALE of February 04 with dating at that ultrasound of 11 weeks and 2 days. The patient tells me that she has already established care at [facility] midwifery and had a visit there with a telegraph messenger hilaria Davisya and she is under their care and has future appointments and ultrasounds already set up she will no longer be following up with us at [facility]. PFSH Medical History COVID-19 Social History Alcohol intake: never Patient Tobacco Use Status: Never used Tobacco e-Cigarette/Vaping Use: Never Used Female Reproductive History Menstrual Age of Menarche: 10 control method: none Results Reviewed Results Reviewed: atient: Taniya Mejia MR#: [id number] : 1990 Acct:[id number] Age/Sex: 33 / F ADM Date: 07/19/23 Loc: HO.US Attending Dr: Ashtyn Alcazar CNM Ordering Physician: Ashtyn Alcazar CNM Date of Service: 07/19/23 Procedure(s): US OB <= 14 weeks fetus Accession Number(s): [id number] cc: Ashtyn Alcazar CNM~ EXAMINATION: US OBSTETRICAL ULTRASOUND CLINICAL INFORMATION: Encounter for supervision of normal . COMPARISON: None available. LMP: 05/05/2023. Gestational age by maternal dates is 10 weeks and 5 days. Estimated date of delivery by maternal dates is 02/09/2024. TECHNIQUE: Ultrasound of the maternal pelvis is performed using transabdominal transducer. M-mode Doppler is also performed. FINDINGS: There is a single intrauterine gestational sac with visible yolk sac, embryo/fetus, and cardiac activity. There is no significant subchorionic hemorrhage or hematoma. HR: 172 beats per minute. CRL (crown rump length): 4.34 cm (11 weeks and 2 days +/- 4 days). WALE (estimated date of delivery): 02/05/2024 +/- 4 days. MATERNAL ADNEXA: The right maternal ovary measures 5.2 x 4.2 x 4.6 cm. The right ovary contains a 4.3 cm in maximal diameter benign, simple cyst, for which no imaging follow-up is recommended. The left maternal is not visualized. There is no significant maternal adnexal mass. No maternal pelvic ascites. US/US OB <= 14 weeks fetus IMPRESSION: 1. Single intrauterine gestation with ultrasound gestational age of 11 weeks and 2 days +/- 4 days. 2. Estimated date of delivery is 02/05/2024 +/- 4 days. 3. No maternal adnexal mass or pelvic ascites. Dictated By: Kevon Dominguez MD Signed By: <Electronically signed by Kevon Dominguez MD in OV> 07/21/23 1116 DD/ 1324 TD/TT: Assessment & Plan Assessment & Plan (1) Early stage of : Comment: lmp 05/05/23, pos preg test er 06/07/23 ( w covid dx); dating ultrasound done 07/19/2023 11 weeks and 2 days, WALE 02/05/2024 patient is already established care at [facility] midwifery and will be cared for there. Code(s): Z34.90 - Encounter for supervision of normal , unspecified, unspecified trimester Plan This is a tele visit to review patient's ultrasound that she had 1 month ago on 07/19/2023 as a dating ultrasound. She had been seen just as a consult visit prior to that the ultrasound gave her an WALE of February 04 with dating at that ultrasound of 11 weeks and 2 days. The patient tells me that she has already established care at [facility] midwifery and had a visit there with a telegraph messenger hilaria Olivia and she is under their care and has future appointments and ultrasounds already set up she will no longer be following up with us at [facility]. Telehealth Telehealth Location of provider rendering services: practice address Location of patient: other Patient Identification confirmed using: Name, : Yes Telehealth method: video Patient verbally consented to treatment: Yes Patient verbally consented to billing insurance company: Yes Patient informed of any privacy concerns related to visit: Yes Coding Level of Care Code Tele Est Pt Level 3 (98557) Diagnoses Early stage of Z34.90 Time Spent (min) 13 Comment 3/ 5 speaking w pt/5/ charting
== END 2023-08-18 12:11 | disposition home or self-care (01) ==
LOC: HO.HWSM 11:08
PROVIDERS: Visit Provider Advanced Practice Midwife
DX: Z34.90 Encounter for supervision of normal pregnancy, unspecified, unspecified trimester (principal)
CPT/HCPCS: 99213

== ENCOUNTER → 2023-08-18 11:08 | Outpatient (BNVA) | payer MEDICAID, SELFPAY | PROVIDERS: Visit Provider Advanced Practice Midwife ==

== ENCOUNTER 2024-09-23 08:56 | Outpatient (REF) | payer MEDICAID, SELFPAY ==
--- OUTSIDE RECORDS SUMMARY | 2024-09-23 09:38 | XMS_ITS | Encounter Summary ---
Author Organization [employer] Address [address] [facility] 7t [place] [address] Care Team Providers Care Electrical Technician Name Role Phone Belen Morris Primary Care Provider Reason for Visit * Reason Comments CHW - New Patient Assistance Encounter Details Date Type Department Care Team ([facility] Contact Info) Description 09/18/2024 10:00 AM EDT Office Visit [facility] MEDICINE [address] [place] [address] Belen Morris FNP [address] [place] [address] Encounter for adult wellness visit (Primary Dx); Dietary counseling; Exercise counseling; Class 1 obesity Social History Tobacco Use Types Packs/Day Years Used Date Smoking Tobacco: Never Smokeless Tobacco: Never Alcohol Use Standard Drinks/Week Comments Never 0 (1 standard drink = 0.6 oz pur e alcohol) Depression Answer Date Recorded Patient Health Questionnaire-9 Score 0 09/18/2024 Patient Health Questionnaire-9 Score 0 09/18/2024 Last PHQ-9: Questionnaire Data Not on file 0 09/18/2024 Housing Stability Answer Date Recorded What is your housing situation today? I have reina hernandez 09/10/[address] you li ve. Do you have problems with any of the following? None of the above 09/10/2024 Food Insecurity Answer Date Recorded Within the past 12 months, y ou worried that your food would run out before you got money to buy more: Never True 09/10/2024 Within the past 12 months,th e food you bought just didn't last and you didn't have enough money to get more: Never True Transportation Answer Date Recorded In the past 12 months, has l ack of transportation kept you from medical appts, meetings, work or from getting things needed for daily living? No 09/10/2024 Utilities Answer Date Recorded In the past 12 months, has t he electric, gas, oil or water company threatened to shut off services in your home? No 09/10/2024 Depression Answer Date Recorded Patient Health Questionnaire-2 Score 0 09/18/2024 Internet Access Answer Date Recorded Internet Access Q1 Yes 09/10/2024 Internet Access Q2 Not on file 09/10/2024 Comments Unknown Sex and Gender Information Value Date Recorded Sex Assigned at Female 11/04/2022 10:08 AM EDT Legal Sex Female 10:10 AM EST Gender Identity Female 11/04/2022 10:08 AM EDT Sexual Orientation Straight 11/04/2022 10 :08 AM EDT documented as of this encounter Last Filed Vital Signs Vital Sign Reading Time Taken Comments Blood Pressure 129/68 09/18/2024 10:26 AM EDT Pulse 68 09/18/2024 10:26 AM EDT Temperature 37.1 ??C (98.7 ??F) 09/18/2024 10:26 AM E DT Respiratory Rate 20 09/18/2024 10:26 AM EDT Oxygen Saturation 98% 09/18/2024 10:26 AM EDT Inhaled Oxygen Concentration - - Weight 82 kg (180 lb 12.8 oz) 09/18/2024 10:26 A M EDT Height 154.9 cm (5' 1 ) 09/18/2024 10:26 AM EDT Body Mass Index 34.16 09/18/2024 10:26 AM EDT documented in this encounter Progress Notes * ELVIRA Briones - 09/18/2024 10:00 AM EDT Subjective: Taniya Mejia is a 34 y.o. female who presents to the office for a new patient visit. Current concerns: No current concerns Patient Active Problem List Diagnosis BPPV (benign paroxysmal positional vertigo) Other chest pain Palpitations Class 1 obesity History of allergic rhinitis History of section Exercise counseling Dietary counseling Encounter for adult wellness visit Past Surgical History: Procedure Laterality Date SECTION, LOW TRANSVERSE Family History Problem Relation Name Age of Onset Alzheimer's disease Maternal Grandmother Diabetes Maternal Grandfather Social History Living situation: Lives wt with children - 2 step children and her baby. Denies IPV Safety:No fire arms in the home. Working smoke and fire alarm. Reports home and environment safe Employment/Education: Self employ Diet/exercise: Eats variety of food including fruits and vegetables. Reports occasional eats unhealthy. No soda intake No routine exercise Substance use: Denies use Sexual activity: Yes wit Dental: To schedule appnt with [facility] dental Vision: Home vision clinic last visit 09/16 Last menstrual period: 08/06/24. Reports period regular. Last pap smear 2018. Scheduled for pap smear in 2 weeks Contraception: Depot shot Children: 1 ( 7 months old) Till breast feeding Mental health: Denies SI, harming self or others Allergies Allergen Reactions [place] Oil Itching Azithromycin Latex Hives Peanut Allergen Powder-Dnfp Current Outpatient Medications Medication Sig Dispense Refill docusate sodium (Colace) 100 MG capsule Take 1 capsule by mouth if needed in the morning and at bedtime for constipation. ferrous gluconate (Fergon) 324 (38 Fe) MG tablet Take 1 tablet by mouth Once per day. medroxyPROGESTERone (Depo-Provera) 150 MG/ML injection Inject 150 mg into the muscle every 3 (three) months. No current facility-administered medications for this visit. Health Maintenance Topic Date Due HIV Screening Never done Family Planning (PISQ) Never done Hepatitis C Screening Never done Hepatitis B Vaccines (1 of 3 - 19+ 3-dose series) Never done Cervical Cancer Screening Never done Influenza Vaccine (1) 01/28/2024 COVID-19 Vaccine ( - 2023- season) Never done SDOH Screening 09/10/2025 Depression Screening 09/18/2025 Tobacco Screening 09/18/2025 Alcohol/Substance Use Screening 09/18/2025 DTaP/Tdap/Td Vaccines (2 - Td or Tdap) 11/15/2033 Zoster Vaccines (1 of 2) 2039 RSV Patients and Patients Aged 60 years or older (1 - 1-dose 75+ series) 2064 RSV under 20 months Aged Out HIB Vaccines Aged Out IPV Vaccines Aged Out Hepatitis A Vaccines Aged Out Meningococcal Vaccine Aged Out Rotavirus Vaccines Aged Out HPV Vaccines Aged Out Pneumococcal Vaccine: Pediatrics (0 to 5 Years) and At-Risk Patients (6 to 49) Years) Aged Out Review of Systems Constitutional: Negative for activity change, appetite change, fatigue and fever. HENT: Negative for congestion, ear discharge, ear pain, rhinorrhea and sore throat. Eyes: Negative for discharge, redness and itching. Respiratory: Negative for cough, shortness of breath and wheezing. Cardiovascular: Negative for chest pain. Gastrointestinal: Negative for abdominal pain, blood in stool, constipation, diarrhea, nausea and vomiting. Endocrine: Negative for polydipsia and polyuria. Genitourinary: Negative for decreased urine volume, difficulty urinating, dyspareunia, hematuria and menstrual problem. Musculoskeletal: Negative for arthralgias, gait problem and joint swelling. Skin: Negative for rash. Allergic/Immunologic: Negative for environmental allergies and food allergies. Neurological: Negative for dizziness, weakness and headaches. Hematological: Does not bruise/bleed easily. Psychiatric/Behavioral: Negative for behavioral problems, sleep disturbance and suicidal ideas. Vitals: 09/18/24 1026 BP: 129/68 BP Location: Left arm Patient Position: Sitting BP Cuff Size: Adult Pulse: 68 Resp: 20 Temp: 98.7 ??F (37.1 ??C) TempSrc: Oral SpO2: 98% Weight: 180 lb 12.8 oz (82 kg) Height: 5' 1 (1.549 m) Physical Exam Constitutional: Appearance: Normal appearance. HENT: Head: Normocephalic and atraumatic. Right Ear: Tympanic membrane, ear canal and external ear normal. Left Ear: Tympanic membrane, ear canal and external ear normal. Nose: Nose normal. No congestion. Mouth/Throat: Mouth: Mucous membranes are moist. Pharynx: Oropharynx is clear. Eyes: Extraocular Movements: Extraocular movements intact. Pupils: Pupils are equal, round, and reactive to light. Cardiovascular: Rate and Rhythm: Normal rate and regular rhythm. Pulses: Normal pulses. Heart sounds: Normal heart sounds. No murmur heard. Pulmonary: Effort: Pulmonary effort is normal. Breath sounds: Normal breath sounds. No wheezing. Chest: Chest wall: No tenderness. Abdominal: General: Abdomen is flat. Bowel sounds are normal. Palpations: Abdomen is soft. Tenderness: There is no guarding or rebound. Musculoskeletal: General: Normal range of motion. Cervical back: Normal range of motion. Right lower leg: No edema. Left lower leg: No edema. Skin: General: Skin is warm and dry. Capillary Refill: Capillary refill takes less than 2 seconds. Findings: No bruising. Neurological: General: No focal deficit present. Mental Status: She is alert and oriented to person, place, and time. Cranial Nerves: No cranial nerve deficit. Sensory: No sensory deficit. Psychiatric: Mood and Affect: Mood normal. Behavior: Behavior normal. Thought Content: Thought content normal. Judgment: Judgment normal. Problem List Items Addressed This Visit Encounter for adult wellness visit - Primary Well nourished, alert and cooperative , good historian, and answering questions appropriately Plan Blood work order to screen for anemia, electrolytes, and lipid Declined preventing screening for STIs. Reports recently done at [facility] No family hx of colon CA, colonoscopy / stool based tests deferred to 45 yrs Pap smear scheduled to 2 weeks Diet and exercise review Hep B lab work to determine presence of antigens or antibody Lifestyle and behavioral health assessment Patient education on vaccination and importance getting annual vaccines. HPV vaccine deferred to next visit Follow up in two weeks for pap smear and HPV injection Next well adult visit 08/2025 Relevant Orders CBC auto differential Basic Metabolic Panel Hepatic Function Panel Hepatitis B Core Antibody, Total Hepatitis B surface antigen, EIA Hepatitis B Surface Antibody, Qualitative Hepatitis C Antibody with Reflex to HCV, RNA, Quantitative, Real-Time PCR Class 1 obesity Exercise counseling Dietary counseling BMI 34.16 Discussed with patient eating healthy and focus on healthyfood choices daily fruits, vegetables, grains, low fat milk, low carbohydrate and fat Maintain healthy weight as this will lower your risk for many health problems. Be physically active at least 45 minutes a day [facility] PUBLIC WORKS MANAGER Attestation PUBLIC WORKS MANAGER Resident Attestation: Patient was seen and evaluated by Belen FELIX , in collaboration with Jacqui Cheema MD who has reviewed my assessment and plan. I, Jacqui Cheema MD, have reviewed the resident's note and agree with the assessment & planof care as documented above. documented in this encounter Plan of Treatment Upcoming Encounters Date Type Department Care Team (Late st Contact Info) Description 10/25/2024 9:15 AM EDT Office Visit [facility] MEDICINE [address] [place] [phone] Belen Morris FNP [address] [place] [address] Scheduled Orders Name Type Priority Associated Diagnoses Orde r Schedule CBC auto differential Lab Routine Encounter For Adult Wellness Visit Expected: 09/18/2024 (Approximate), Expires: 09/17/2025 Basic Metabolic Panel Lab Routine Encounter For Adult Wellness Visit Expected: 09/18/2024 (Approximate), Expires: 09/17/2025 Hepatic Function Panel Lab Routine Encounter for adult wellness visit Expected: 09/18/2024 (Approximate), Expires: 09/17/2025 Hepatitis B Core Antibody, Total Lab Routine Encounter for adult wellness visit Expected: 09/18/2024 (Approximate), Expires: 09/17/2025 Hepatitis B surface antigen, EIA Lab Routine Encounter for adult wellness visit Expected: 09/18/2024 (Approximate), Expires: 09/17/2025 Hepatitis B Surface Antibody, Qualitative Lab Routine Encounter for adult wellness visit Expected: 09/18/2024 (Approximate), Expires: 09/17/2025 Hepatitis C Antibody with Reflex to HCV, RNA, Quantitative, Real-Time PCR Lab Routine Encounter for adult wellness visit Expected: 09/18/2024 (Approximate), Expires: 09/17/2025 documented as of this encounter Visit Diagnoses Diagnosis Encounter for adult wellness visit- Primary Dietary counseling Dietary surveillance and counseling Exercise counseling Class 1 obesity documented in this encounter Additional Health Concerns Assessment Noted Time PHQ-9 Depression Total Score: 0 09/19/19 10:36 AM EDT documented as of this encounter Care Teams Electrical Technician Relationship Specialty Start Date End Date Belen Morris FNP [address] [place] [address] PCP - General Family Medicine 09/18/24 documented as of this encounter
--- OUTSIDE RECORDS SUMMARY | 2024-09-23 09:38 | XMS_ITS | Encounter Summary ---
Author Organization [employer] Address [address] [facility] [address] [place] [address] Care Team Providers Care Lace And Textiles Restorer Name Role Phone Belen Morris NEEDLE MOLDER Primary Care Provider [phone] Encounter Details Date Type Department Care Team (Latest Contact Info) Description 09/18/2024 Travel Social History Tobacco Use Types Packs/Day Years [...] AM EDT documented as of this encounter Plan of Treatment Upcoming Encounters Date Type Department Care Team (Late st Contact Info) Description 10/25/2024 9:15 AM EDT Office Visit [facility] MEDICINE [address] [place] [address] Belen Morris FNP [address] [place] [address] documented as of this encounter Visit Diagnoses Not on filedocumented in this encounter Additional Health Concerns Assessment Noted Time PHQ-9 Depression Total Score: 0 09/19/19 10:36 AM EDT documented as of this encounter Care Teams Lace And Textiles Restorer Relationship Specialty Start Date End Date Belen Morris FNP [address] [place] [address] PCP - General Family Medicine 09/18/24 documented as of this encounter
--- OUTSIDE RECORDS SUMMARY | 2024-09-23 09:38 | XMS_ITS | Clinical Summary ---
Author Organization [employer] Address [address] [place] [address] Care Team Providers Care History Department Chair Name Role Phone Belen Morris Primary Care Provider [phone] Allergies Active Allergy Reactions Criticality Noted Date Comments Brogue Oil Itching 09/18/2024 Azithromycin 09/18/2024 Latex Hives 09/18/2024 Peanut Allergen Powder-Dnfp 11/05/19 Medications docusate sodium (Colace) 100 MG capsule Take 1 capsule by mouth if needed in the morning and at bedtime for constipation . 02/18/2024 Active ferrous gluconate (Fergon) 324 (38 Fe) MG tablet Take 1 tablet by mouth Once per day. 06/18/2024 Active medroxyPROGESTE Nico (Depo-Provera) 150 MG/ML injection Inject 150 mg into the muscle every 3 (three) months. 07/05/2024 Active Active Problems Problem Noted Date Diagnosed Date Class 1 obesity 09/18/2024 History of allergic rhinitis 09/18/2024 History of section 09/18/2024 Exercise counseling 09/18/2024 Dietary counseling 09/18/2024 Encounter for adult wellness visit 09/18/2024 BPPV (benign paroxysmal positional vertigo) 01/2023 Other chest pain 11/04/2022 Palpitations 11/04/2022 Encounters Date Type Department Care Team Description 09/18/2024 10:00 AM EDT Office Visit [facility] MEDICINE [address] [place] [address] Belen Morris FNP Encounter for adult wellness visit (Primary Dx); Dietary counseling; Exercise counseling; Class 1 obesity 09/18/2024 Travel 09/17/2024 Telephone [facility] MEDICINE [address] [place] [address] Belen Morris FNP CHART PREP 09/11/2024 Travel 09/10/2024 Patient Outreach [facility] [address] [place] [address] Belen Morris FNP Pre-visit Planning (SDOH negative,. Tobacco screening negative. ) 08/09/2024 Population Health Risk Score [facility] Department [address] [place] [id number] Provider, Population Health Generic 07/02/2024 Telephone [facility] MEDICINE [address] [place] [address] Dallin Wren MD 07/02/2024 Telephone [facility] MEDICINE [address] [place] [address] Dallin Wren MD New patient appt. from Last 3 Months Family History Medical History Relation Name Comments Diabetes Maternal Grandfather Alzheimer's disease Maternal Grandmother Relation Name Status Comments Maternal Grandfather Maternal Grandmother Social History Tobacco Use Types Packs/Day Years Used Date Smoking Tobacco: Never Smokeless Tobacco: Never Tobacco Cessation:Counseling Given: Not Answered Alcohol Use Standard Drinks/Week Comments Never 0 [...] Orientation Straight 11/04/2022 10 :08 AM EDT Last Filed Vital Signs Vital Sign Reading [...] Mass Index 34.16 09/18/2024 10:26 AM EDT Plan of Treatment Upcoming Encounters Date Type Department Care Team (Late st Contact Info) Description 10/25/2024 9:15 AM EDT Office Visit [facility] MEDICINE [address] [place] [address] Belen Morris FNP [address] [place] [address] Health Maintenance Due Date Last Done Comments HIV Screening 1989 Hepatitis C Screening 2007 Hepatitis B Vaccines (1 of 3 - 19+ 3-dose series) 2008 Pap Smear 2010 Cervical Cancer Screening 2019 HPV/Cotest 2019 COVID-19 Vaccine (1 - 2023-2 5 season) 2024 Influenza Vaccine (#1) 2024 , 08/08/2023 SDOH Screening 09/10/2025 09/10/2024 Alcohol/Substance Use Screening 09/18/2025 09/18/2024 Depression Screening 09/18/2025 09/18/2024, 09/18/2024 Family Planning (PISQ) 09/18/2025 09/18/2024 Tobacco Screening 09/18/2025 09/18/2024 DTaP/Tdap/Td Vaccines (2 - T d or Tdap) 11/15/2033 11/16/2023 Zoster Vaccines (1 of 2) 2039 RSV Patients and Patients Aged 60 years or older (1 - 1-dose 75+ series) 2064 HIB Vaccines Aged Out No longer eligi ble based on patient's age to complete this topic HPV Vaccines Aged Out No longer eligi ble based on patient's age to complete this topic Hepatitis A Vaccines Aged Out No long er eligible based on patient's age to complete this topic IPV Vaccines Aged Out No longer eligi ble based on patient's age to complete this topic Meningococcal Vaccine Aged Out No alix milo eligible based on patient's age to complete this topic Pneumococcal Vaccine: Pediatrics (0 to 5 Years) and At-Risk Patients (6 to 49) Years) Aged Out No longer eligible b ased on patient's age to complete this topic RSV under 20 months Aged Out No longe r eligible based on patient's age to complete this topic Rotavirus Vaccines Aged Out No longer eligible based on patient's age to complete this topic Insurance [employer] C3 HSN FULL Care Teams History Department Chair Relationship Specialty Start Date End Date Belen Morris FNP [address] [place] [id number] PCP - General Family Medicine 09/18/24
--- OUTSIDE RECORDS SUMMARY | 2024-09-23 09:38 | XMS_ITS | Encounter Summary ---
Author Organization [employer] Address [address] [facility] 7t [place] [address] Care Team Providers Care Glass Artist Name Role Phone eBlen Morris SUPERVISOR TRAVEL TRAILER Primary Care Provider [phone] Reason for Visit * Reason Onset Date Comments New Patient 01/17/2023 Encounter Details Date Type Department Care Team ([facility] Contact Info) Description 01/17/2023 Telephone [facility] MEDICINE [address] [place] [address] Dallin Wren MD [address] [place] [address] New Patient Social History Tobacco Use Types Packs/Day Years Used Date Smoking Tobacco: Never Smokeless Tobacco: Never Alcohol Use Standard Drinks/Week Comments Never 0 (1 standard drink = 0.6 oz pur e alcohol) Comments Unknown Sex and Gender Information Value Date Recorded Sex Assigned at Female 11/04/2022 10:08 AM EDT Legal Sex Female 10:10 AM EST Gender Identity Female 11/04/2022 10:08 AM EDT Sexual Orientation Straight 11/04/2022 10 :08 AM EDT documented as of this encounter Miscellaneous Notes * Telephone Encounter - Jeri Hodgson - 01/17/2023 2:38 PM EDT 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 EFFECTIVE SINCE 01/17/2023 documented in this encounter Plan of Treatment Upcoming Encounters Date Type Department Care Team ([facility] Contact Info) Description 10/25/2024 9:15 AM EDT Office Visit [facility] MEDICINE [address] [place] [address] Belen Morris FNP [address] [place] [address] documented as of this encounter Visit Diagnoses Not on filedocumented in this encounter Care Teams Glass Artist Relationship Specialty Start Date End Date Belen Morris FNP [address] [place] [address] PCP - General Family Medicine 09/18/24 documented as of this encounter
[2024-09-23 11:02] LABS: MANUAL DIFF FLAG NO
[2024-09-23 11:44] LABS: HBS Num1 5.88 mIU/mL (0-7.99); HBc Num1 0.11 S/CO (0.00-0.79); HBsAGNum1 0.34 S/CO (0.00-0.99); Hepatitis B Core Antibody Nonreactive (Nonreactive); Hepatitis B Surface Antigen Negative (Negative); ~HepC Num1 0.14 S/CO (0.00-0.79); ~Hepatitis B Surface Antibody NONREACTIVE (Nonreactive); ~Hepatitis C Antibody Nonreactive (Nonreactive)
[2024-09-23 11:47] LABS: Alanine Aminotransferase 32 U/L (0-31); Albumin Level 4.2 g/dL (3.5-5.0); Alkaline Phosphatase 115 U/L (39-117); Anion Gap 11 (12-20); Aspartate Amino Transferase 29 U/L (5-31); Bilirubin Direct 0.2 mg/dL (0.0-0.5); Bilirubin Total 0.5 mg/dL (0.0-1.0); Blood Urea Nitrogen 14 mg/dL (9-16); Calcium 9.2 mg/dL (8.4-10.2); Carbon Dioxide 22 mmol/L (22-29); Chloride 113 mmol/L (96-108); Estimated Glomerular Filt Rate > 60; Glucose Random 81 mg/dL (60-115); Sodium 142 mmol/L (135-145); Total Protein 7.3 g/dL (6.5-8.0)
[2024-09-23 12:21] LABS: Basophils Absolute Auto 0.1 X10*3/uL (0.0-0.2); Basophils Percent Auto 0.7 % (0-2); Eosinophils Absolute Auto 0.1 X10*3/uL (0.0-0.4); Eosinophils Percent Auto 1.6 % (0-4); Hematocrit 36.7 % (37.0-47.0); Hemoglobin 11.8 g/dl (12.0-16.0); Imm Gran Abs Auto 0.05 X10*3/uL (0.00-0.03); Imm Gran Pct Auto 0.6 % (0.0-0.4); Lymphocytes Absolute Auto 2.1 X10*3/uL (1.2-4.9); Lymphocytes Percent Auto 23.6 % (20-40); Mean Corpuscular HGB Conc 32.2 g/dl (31.0-35.0); Mean Corpuscular Hemoglobin 27.3 pg (27.0-33.0); Mean Corpuscular Volume 84.8 fL (80.0-98.0); Monocytes Absolute Auto 0.4 X10*3/uL (0.1-1.2); Monocytes Percent Auto 4.4 % (2-11); Neutrophils Absolute Auto 6.1 x10*3/uL (2.0-8.3); Neutrophils Percent Auto 69.1 % (45-73); Platelet Count 356 X10*3/uL (160-400); Red Blood Count 4.33 X10*6/uL (4.20-5.50); Red Cell Distribution Width 13.6 % (11.0-16.0); White Blood Count 8.8 X10*3/uL (4.8-10.8)
== END 2024-09-23 08:57 | disposition home or self-care (01) ==
LOC: HO.HHCL 08:56
PROVIDERS: Visit Provider Nurse Practitioner Family
DX: Z00.00 Encounter for general adult medical examination without abnormal findings (principal)
CPT/HCPCS: 36415; 80048; 80076; 85025; 86704; 86706; 86803; 87340